=== PATIENT | female | born 1980 | race Caucasian/White ===

== ENCOUNTER → 2018-05-30 | Outpatient (CLI) | payer OTHER ==
[~2018-05-30] MED LIST: AMBI5TAB; KEFL500C17 PO; KLON0.5T; OMEP20CA3 PO; ONDA4TAB6 PO; PERC5TAB12 PO; REGL10TA6 PO; SPIR-10 PO; TUMS500C PO; ZOLO50TA; [UNRECOGNIZED DRUG - REMARK]
== END ==
LOC: M RAD 07:28
PROVIDERS: ATTEND Internal Medicine Gastroenterology
DX: K82.8 Other specified diseases of gallbladder (principal); R94.5 Abnormal results of liver function studies; R11.2 Nausea with vomiting, unspecified; Z53.9 Procedure and treatment not carried out, unspecified reason

== ENCOUNTER 2018-06-14 11:06 | Emergency (ER) | payer OTHER ==
[~2018-06-14] VITALS: Ht 162.6 cm; Wt 54.5 kg
[~2018-06-14 11:06] MED LIST changes: -KEFL500C17 PO; -ONDA4TAB6 PO; -PERC5TAB12 PO; -REGL10TA6 PO
[2018-06-14] MEDS ORDERED: ONDA4TAB6 PO (11:14)
[2018-06-14] MEDS ORDERED: ONDANSETRON 4MG/2ML VIAL (J2405) IV ONE (12:00)
[2018-06-14] MEDS ORDERED: NS 1,000 ML IV ONE (12:00)
[2018-06-14] MEDS: MORPHINE 4 MG/ML 1ML VIAL/SYRINGE (J2270) IV PRN ×2 (12:07→15:00)
[2018-06-14 12:26] LABS: BASO % 0.7 % (0.0-1.0); EOS # 0.1 10^3/uL (0.0-0.50); EOS % 1.3 % (0.0-3.0); HEMATOCRIT 47.3 % (36.0-47.0); HEMOGLOBIN 16.3 g/dl (12.0-15.5); LYMPH # 1.2 10^3/uL (1.5-4.5); LYMPH % 19.3 % (24.0-44.0); MEAN CORPUSCULAR HEMOGLOBIN 33.4 pg (27.0-33.0); MEAN CORPUSCULAR HGB CONC 34.5 g/dl (32.0-36.5); MEAN CORPUSCULAR VOLUME 96.9 fl (80.0-96.0); MONO # 0.7 10^3/uL (0.0-0.8); MONO % 12.1 % (0.0-5.0); NEUTROPHILS % 66.3 % (36.0-66.0); PLATELET COUNT, AUTOMATED 255 10^3/uL (150-450); RED BLOOD COUNT 4.88 10^6/uL (4.00-5.40)
[2018-06-14 13:05] LABS: ALT/SGPT 57 U/L (12-78); AMYLASE 27 U/L (25-115); BILIRUBIN,DIRECT 0.5 MG/DL (0.0-0.2); BILIRUBIN,TOTAL 0.9 MG/DL (0.2-1.0); BLOOD UREA NITROGEN 2 MG/DL (7-18); CALCIUM LEVEL 9.2 MG/DL (8.5-10.1); CARBON DIOXIDE LEVEL 26 MEQ/L (21-32); CHLORIDE LEVEL 101 MEQ/L (98-107); CREATININE FOR GFR 0.71 MG/DL (0.55-1.30); GLOMERULAR FILTRATION RATE > 60.0 (>60); GLUCOSE, FASTING 94 MG/DL (70-100); LIPASE 70 U/L (73-393); POTASSIUM SERUM 3.2 MEQ/L (3.5-5.1); SODIUM LEVEL 139 MEQ/L (136-145); TOTAL PROTEIN 6.7 GM/DL (6.4-8.2)
--- NOTE | 2018-06-14 14:08 | REP ---
RIGHT UPPER QUADRANT SONOGRAPHY: HISTORY: Right upper quadrant pain. History of gallbladder disease. No comparison imaging. FINDINGS: Scanning through right upper quadrant of the abdomen demonstrates a normal sized nontender gallbladder without evidence of stone or polyp. No wall thickening is appreciated. Common bile duct is at the upper range of normal measuring 0.7 cm. There is evidence of mild fatty infiltration of the liver. Limited views of the pancreas show no abnormality. No focal liver lesion is seen. There is no evidence of ascites or right renal abnormality. The right kidney measures 10.8 x 4.9 x 4.2 cm. IMPRESSION: CBD at the upper range of normal, 7 mm. Mild fatty infiltration of the liver. Otherwise negative. Electronically Signed by Jw Baker MD 06/14/2018 07:18 P
[2018-06-14] MEDS ORDERED: METOCLOPRAMIDE INJ 10MG/2ML VIAL (J2765) IV ONE (14:30)
[2018-06-14 15:35] VITALS: BP 107/71
[2018-06-14] MEDS ORDERED: REGL10TA6 PO (16:11)
[2018-06-14] MEDS ORDERED: PERC5TAB12 PO (16:11)
[2018-06-16] MEDS ORDERED: KEFL500C17 PO (12:07)
--- NOTE | 2018-06-18 11:19 | ED PDOC ---
Post-Departure Follow-Up dr waterman faxed formal report of gb us for fu Fani Foss MD Jun 18, 2018 11:19
== END 2018-06-14 16:27 | disposition home or self-care (01) ==
LOC: M ED 11:06
DX: K80.50 Calculus of bile duct without cholangitis or cholecystitis without obstruction (principal); R56.9 Unspecified convulsions; Z88.8 Allergy status to other drugs, medicaments and biological substances; Z87.891 Personal history of nicotine dependence
CPT/HCPCS: 76705; 80048; 80076; 81001; 81025; 82150; 83690; 85025; 87088; 87186; 96361; 96374; 96375; 96376; 99284; J2270; J2405; J2765

== ENCOUNTER 2018-06-17 10:25 | Day surgery (SDC) | payer OTHER ==
[~2018-06-17] VITALS: Ht 162.6 cm; Wt 57.2 kg
[~2018-06-17 10:25] MED LIST changes: +KEFL500C17 PO; +LIDOCAINE 2% INJ 100 MG/5 ML SDV (FOR ANES.) As Ordered ONE; +NS 1,000 ML IV ONE; +ONDA4TAB6 PO; +PERC5TAB12 PO; +PROPOFOL 200 MG/20 ML VIAL As Ordered ONE; +REGL10TA6 PO
[2018-06-17] MEDS ORDERED: ONDANSETRON 4MG/2ML VIAL (J2405) As Ordered ONE (12:04)
--- NOTE | 2018-06-17 12:10 | ROOR ---
Patient Name: Kristi Sandoval Procedure Date: 06/17/2018 11:52 AM Date of : 1980 Age: 38 Room: [facility] Gender: Female Note Status: Finalized Procedure: Upper GI endoscopy Indications: Abdominal pain, Nausea with vomiting Providers: Benedict CHEUNG MD Referring MD: Mehnaz Mi Md Requesting Provider: Medicines: Monitored Anesthesia Care Complications: No immediate complications. Procedure: Pre-Anesthesia Assessment: - The heart rate, respiratory rate, oxygen saturations, blood pressure, adequacy of pulmonary ventilation, and response to care were monitored throughout the procedure. The Endoscope was introduced through the mouth, and advanced to the second part of duodenum. The upper GI endoscopy was accomplished without difficulty. The patient tolerated the procedure well. Findings: Mildly severe esophagitis with no bleeding was found in the lower third of the esophagus. Biopsies were taken with a cold forceps for histology. Small Hiatal Hernia. Mild gastritis, This was biopsied with a cold forceps for histology. The examined duodenum was normal. Impression: - Mild to moderate reflux esophagitis. Biopsied. - Small Hiatal Hernia. - Mild gastritis. Biopsied - Normal examined duodenum. Recommendation: - Continue present medications. - Await pathology results. - Return to my office in 2 weeks. - Return to my office after studies are complete. (HIDA scan) Benedict Cheung MD Benedict CHEUNG MD 06/17/2018 12:10:01 PM This report has been signed electronically. Number of Addenda: 0 Note Initiated On: 06/17/2018 11:52 AM Estimated Blood Loss: Estimated blood loss: none.
[2018-06-17 12:30] VITALS: BP 121/76
== END 2018-06-17 12:41 | disposition home or self-care (01) ==
LOC: M OPP 10:25
PROVIDERS: ATTEND Internal Medicine Gastroenterology
DX: K21.0 Gastro-esophageal reflux disease with esophagitis (principal); K29.70 Gastritis, unspecified, without bleeding; K44.9 Diaphragmatic hernia without obstruction or gangrene; R10.9 Unspecified abdominal pain; R11.2 Nausea with vomiting, unspecified
CPT/HCPCS: 43239; 88305; J2405

== ENCOUNTER → 2019-01-16 | Outpatient (CLI) | payer OTHER ==
[~2019-01-16] MED LIST changes: +B-650TAB2 PO; +FOLI800C PO; -LIDOCAINE 2% INJ 100 MG/5 ML SDV (FOR ANES.) As Ordered ONE; -NS 1,000 ML IV ONE; +OMEP1CAP73 PO; -OMEP20CA3 PO; -PROPOFOL 200 MG/20 ML VIAL As Ordered ONE; +THIA100T7 PO
--- NOTE | 2019-01-16 16:26 | REP ---
WHOLE BODY BONE SCAN: Following the intravenous administration of 22 mCi technetium 99m MDP, the patient's whole body is imaged in the anterior and posterior projections with additional oblique and lateral views obtained. There is homogeneous radiotracer distribution throughout the axial and appendicular skeleton. No focal areas of abnormal skeletal uptake are seen. Renal and bladder activity are seen. IMPRESSION: Negative whole body bone scan. Electronically Signed by Troy Mckeon MD 01/17/2019 09:30 A
== END ==
LOC: M RAD 08:02
PROVIDERS: ATTEND Internal Medicine Hematology & Oncology
DX: M79.604 Pain in right leg (principal); M79.605 Pain in left leg
CPT/HCPCS: 78306; A9503

== ENCOUNTER → 2019-01-27 | Outpatient (CLI) | payer OTHER ==
[~2019-01-27] MED LIST changes: -OMEP1CAP73 PO; +OMEP20CA4 PO
--- NOTE | 2019-01-27 15:56 | REP ---
Bilateral lower extremity deep vein duplex ultrasound: The deep veins demonstrate normal compression, normal Doppler color flow and normal Doppler waveforms with respiration and augmentation from the popliteal veins to the common femoral veins on the right and the left. Impression: There is no deep vein thrombus in the right or left lower extremities. Electronically Signed by Troy Corey MD 01/27/2019 03:47 P
== END ==
LOC: M RAD 14:51
PROVIDERS: ATTEND Internal Medicine
DX: R60.9 Edema, unspecified (principal)

== ENCOUNTER 2024-10-12 04:37 | Emergency (ER) | payer OTHER ==
[~2024-10-12] VITALS: Ht 162.6 cm; Wt 56.8 kg
[~2024-10-12 04:37] MED LIST changes: +CYCL10TA20 PO; +EMTRICITABINE/TENOFOVIR 200MG/300MG TABLET PO SCH; +HYDR-3713 PO; +OMEP1CAP73 PO; -OMEP20CA4 PO; +ONDA-282 PO; -ONDA4TAB6 PO; +RALTEGRAVIR 400 MG TAB (ISENTRESS) PO SCH
[2024-10-12] MEDS: ACETAMINOPHEN 325 MG TAB PO ONE (06:15)
[2024-10-12 06:32] LABS: BASO % 0.5 % (0.0-1.0); EOS % 0.6 % (0.0-3.0); HEMATOCRIT 43.8 % (36.0-47.0); HEMOGLOBIN 14.9 g/dl (12.0-15.5); LYMPH # 2.3 10^3/uL (1.5-5.0); LYMPH % 37.4 % (24.0-44.0); MEAN CORPUSCULAR HEMOGLOBIN 32.4 pg (27.0-33.0); MEAN CORPUSCULAR VOLUME 95.2 fl (80.0-96.0); MONO # 0.8 10^3/uL (0.0-0.8); MONO % 12.6 % (2.0-8.0); NEUTROPHILS % 48.6 % (36.0-66.0); PLATELET COUNT, AUTOMATED 140 10^3/uL (150-450); WHITE BLOOD COUNT 6.3 10^3/uL (4.0-10.0)
[2024-10-12 06:53] LABS: HCG, SERUM QUALITATIVE NEGATIVE (NEGATIVE)
[2024-10-12 06:57] LABS: HEPATITIS B SURFACE ANTIBODY NEGATIVE (POSITIVE)
[2024-10-12 07:09] LABS: HEPATITIS B SURFACE ANTIGEN NEGATIVE (NEGATIVE)
[2024-10-12 07:22] LABS: HIV 1&2 SCREEN NEGATIVE (NEGATIVE)
[2024-10-12 07:29] LABS: HEPATITIS C VIRUS ABY INDEX 0.02 INDEX (<0.8)
[2024-10-12 07:30] LABS: ALBUMIN 3.8 G/DL (3.2-5.2); ALKALINE PHOSPHATASE 175 U/L (35-104); ALT/SGPT 46 U/L (7.0-40); AST/SGOT 92 U/L (<34); BILIRUBIN,TOTAL 0.4 MG/DL (0.3-1.2); BLOOD UREA NITROGEN < 5 MG/DL (9-23); CARBON DIOXIDE LEVEL 26 MMOL/L (20-31); CHLORIDE LEVEL 111 MMOL/L (98-107); CREATININE FOR GFR 0.43 MG/DL (0.55-1.30); GLOMERULAR FILTRATION RATE > 90.0 (>58); GLUCOSE, FASTING 92 MG/DL (60-100); POTASSIUM SERUM 3.4 MMOL/L (3.5-5.1); SODIUM LEVEL 146 MMOL/L (136-145); TOTAL PROTEIN 7.5 G/DL (5.7-8.2)
[2024-10-12] MEDS: ULIPRISTAL ACETATE 30MG TAB (ELLA) PO ONE (08:25)
[2024-10-12] MEDS ORDERED: EXPOSURE KIT-ADULT 7 DAY SUPPLY PO ONE (08:25)
[2024-10-12] MEDS: oxyCODONE 5MG TAB PO ONE (08:46)
[2024-10-12] MEDS: ONDANSETRON 4MG ORAL DISINTEGRATING TAB PO ONE (08:46)
[2024-10-12] MEDS: AZITHROMYCIN 250MG TABLET PO ONE (08:47)
[2024-10-12] MEDS: metroNIDAZOLE (FLAGYL) 500MG TABLET PO ONE (08:47)
[2024-10-12] MEDS: cefTRIAXone 500MG VIAL IM ONE (09:04)
[2024-10-12] MEDS: LIDOCAINE 1% SDV 5ML VIAL DILUENT ONE (09:05)
[2024-10-12] MEDS: EMTRICITABINE/TENOFOVIR 200MG/300MG TABLET PO ONE (10:29)
[2024-10-12] MEDS: RALTEGRAVIR 400 MG TAB (ISENTRESS) PO ONE (10:29)
[2024-10-12] MEDS ORDERED: EMTR1TAB16 PO (10:29)
[2024-10-12] MEDS ORDERED: RALT40TA PO (10:29)
[2024-10-12 10:37] VITALS: BP 113/72; TEMP 96.9; O2SAT 99
[2024-10-12] MEDS ORDERED: DIFL200T PO (10:48)
[2024-10-12] MEDS ORDERED: NYST-38 PO (10:50)
[2024-10-12] MEDS ORDERED: PERC5TAB12 PO (10:52)
== END 2024-10-12 11:00 | disposition home or self-care (01) ==
LOC: M ED 04:37 → EDBD 04:37 → M ED 11:00
DX: S06.0X0A Concussion without loss of consciousness, initial encounter (principal); T76.21XA Adult sexual abuse, suspected, initial encounter; Y92.9 Unspecified place or not applicable; Y93.9 Activity, unspecified; Y99.9 Unspecified external cause status; F17.210 Nicotine dependence, cigarettes, uncomplicated; F10.10 Alcohol abuse, uncomplicated; Z88.5 Allergy status to narcotic agent; Z88.6 Allergy status to analgesic agent; Z79.1 Long term (current) use of non-steroidal anti-inflammatories (NSAID); Z79.899 Other long term (current) drug therapy
CPT/HCPCS: 70450; 71046; 80053; 84703; 85025; 86706; 86780; 86803; 87340; 87389; 96372; 99284; J0696